=== PATIENT | male | born 1980 | race Caucasian/White ===

== ENCOUNTER 2021-04-04 13:54 | Inpatient (IN) | payer OTHER ==
[2021-04-04] MEDS ORDERED: HYDROmorphone 0.5 MG/0.5 ML SYRINGE IVP STA (14:05)
--- NOTE | 2021-04-04 14:15 | ED ---
General Adult HPI - General Chief complaint: Abdominal Pain Stated complaint: Ruptured Appendix Time Seen by Provider: 04/04/21 13:56 Source: patient, EMS Mode of arrival: EMS Limitations: no limitations - History of Present Illness Initial comments: 40-year-old male without any significant past medical history presents to the emergency room for a chief complaint of ruptured appendicitis. Patient has had pain since Saturday. He describes this pain as a constant sharp pain in the right lower quadrant. He has also had some nausea and chills. He was seen at [facility] today and had a computed tomography scan performed and was diagnosed with acute appendicitis and transferred to this facility.Patient has no other complaints at this time including shortness of breath, chest pain, abdominal pain, nausea or vomiting, headache, or visual changes. - Related Data Home Medications Medication Instructions Recorded Confirmed No Known Home Medications 04/04/21 04/04/21 Allergies Allergy/AdvReac Type Severity Reaction Status Date / Time No Known Drug Allergies Allergy Unknown Verified 04/04/21 14:52 Review of Systems ROS Statement: Those systems with pertinent positive or pertinent negative responses have been documented in the HPI. ROS Other: All systems not noted in ROS Statement are negative. Past Medical History Past Medical History: No Reported History History of Any Multi-Drug Resistant Organisms: None Reported Past Surgical History: No Surgical Hx Reported Past Psychological History: No Psychological Hx Reported Smoking Status: Former smoker Past Alcohol Use History: Occasional Past Drug Use History: Marijuana General Exam Limitations: no limitations General appearance: alert, in no apparent distress Head exam: Present: atraumatic Eye exam: Present: normal appearance, PERRL, EOMI. Absent: scleral icterus, conjunctival injection ENT exam: Present: normal exam, mucous membranes moist Neck exam: Present: normal inspection, full ROM Respiratory exam: Present: normal lung sounds bilaterally. Absent: respiratory distress, wheezes Cardiovascular Exam: Present: regular rate, normal rhythm, normal heart sounds GI/Abdominal exam: Present: soft, tenderness, normal bowel sounds. Absent: distended Course Vital Signs 04/04/21 13:58 Temperature 98.0 F Pulse Rate 69 Respiratory 18 Rate Blood Pressure 113/74 O2 Sat by Pulse 97 Oximetry EKG Findings - EKG Comments: EKG Findings:: Normal sinus rhythm, ventricular rate 67, [place] interval 168, QTC 390 Medical Decision Making - Medical Decision Making Vitals are stable. Patient is well-appearing. White blood cell count was 13.9. lactic acid does not look like it was obtained which she will do here today. Hemoglobin 12.[address] report with contrast was obtained which showed irregular thick walled fluid collection to 5.7 cm in the right pericolic gutter in the mid abdomen which likely represents ruptured acute tip appendicitis with a moderate amount of adjacent inflammation patient also has mild right perinephric fat stranding however urinalysis did not appear to demonstrate infection. Patient did receive Unasyn as well as a liter bolus. Case discussed with Dr. Bone. Recommends Zosyn instead of Unasyn. I did order this. Blood cultures were not drawn prior to this as patient has already received intravenous antibiotic therapy prior to arrival. She states patient can have a full liquids. Disposition Clinical Impression: Acute appendicitis, Leukocytosis, Abdominal pain Disposition: ADMITTED IP TO THIS HOSP Condition: Serious Is patient prescribed a controlled substance at d/c from ED?: No Time of Disposition: 15:00
[2021-04-04] MEDS ORDERED: SODIUM CHLORIDE 0.9% 1,000 ML IV STA (14:16)
[2021-04-04] MEDS ORDERED: PIPERACILLIN-TAZOBACTAM 3.375 GM in SODIUM CHLORIDE 0.9% 100 ML IVPB STA (14:16)
[2021-04-04] MEDS ORDERED: NALOXONE 0.4 MG/ML 1 ML VIAL IV PRN (14:54)
[2021-04-04] MEDS: HYDROmorphone 0.5 MG/0.5 ML SYRINGE IVP PRN (17:29)
[2021-04-04] MEDS: ONDANSETRON 4 MG/2 ML VIAL IVP PRN (18:50)
[2021-04-04 21:55] LABS: Basophils % (A) 0 %; Eosinophils # (A) 0.6 k/uL (0-0.7); Eosinophils % (A) 4 %; HCT 34.8 % (39.0-53.0); HGB 11.6 gm/dL (13.0-17.5); Lymphocytes # (A) 0.9 k/uL (1.0-4.8); Lymphocytes % (A) 7 %; MCH 32.8 pg (25.0-35.0); MCHC 33.4 g/dL (31.0-37.0); MCV 98.4 fL (80.0-100.0); Monocytes # (A) 0.9 k/uL (0-1.0); Monocytes % (A) 6 %; Neutrophils # (A) 11.8 k/uL (1.3-7.7); Neutrophils % (A) 81 %; Platelet Count 256 k/uL (150-450); RBC 3.53 m/uL (4.30-5.90); RDW 12.3 % (11.5-15.5); WBC 14.4 k/uL (3.8-10.6)
[2021-04-04 22:03] LABS: ALT 11 U/L (4-49); AST 15 U/L (17-59); African American GFR (CKD) >90 (>60 ml/min/1.73 sqM); Albumin 3.1 g/dL (3.5-5.0); Albumin/Globulin Ratio 1.2; Alkaline Phosphatase 69 U/L (38-126); Anion Gap 7 mmol/L; Blood Urea Nitrogen 11 mg/dL (9-20); Calcium 8.7 mg/dL (8.4-10.2); Carbon Dioxide 23 mmol/L (22-30); Chloride 107 mmol/L (98-107); Globulin 2.6 g/dL; Glucose 114 mg/dL (74-99); Non-African American GFR(CKD) >90 (>60 ml/min/1.73 sqM); Potassium 3.8 mmol/L (3.5-5.1); Sodium 137 mmol/L (137-145); Total Bilirubin 0.5 mg/dL (0.2-1.3); Total Protein 5.7 g/dL (6.3-8.2)
--- NOTE | 2021-04-04 22:07 | XR ---
EXAMINATION TYPE: XR abdomen acute w cxr DATE OF EXAM: 04/04/2021 COMPARISON: NONE HISTORY: Abdominal pain TECHNIQUE: 4 views FINDINGS: Heart and mediastinum are normal. Lungs are clear of infiltrate. There is no pleural effusi on. There are no hilar masses. There is no sign of intestinal obstruction or pneumoperitoneum. Fecal pattern is normal. There is con trast in the urinary bladder. There is no evidence of a mass. There are no calcifications over the ki dneys. There is some contrast in the renal collecting systems. There is old left clavicle fracture. IMPRESSION: Nonacute abdomen. No active cardiopulmonary disease.
[2021-04-04] MEDS: ENOXAPARIN 30 MG/0.3 ML SYRINGE SQ SCH (22:18)
[2021-04-04] MEDS: KETOROLAC 30 MG/ML 1 ML VIAL IVP SCH (22:18)
[2021-04-05] MEDS: HYDROmorphone 0.5 MG/0.5 ML SYRINGE IVP PRN ×3 (00:54→17:34)
[2021-04-05] MEDS: ACETAMINOPHEN TAB 500 MG TAB PO SCH ×4 (00:54→17:34)
[2021-04-05] MEDS: PIPERACILLIN-TAZOBACTAM 3.375 GM in SODIUM CHLORIDE 0.9% 100 ML IVPB SCH ×3 (01:35→16:00)
[2021-04-05] MEDS: KETOROLAC 30 MG/ML 1 ML VIAL IVP SCH ×4 (01:37→20:16)
[2021-04-05 07:19] LABS: Glucose,Whole Blood 130 mg/dL (75-99)
[2021-04-05] MEDS: metroNIDAZOLE-NS PMX 500 MG in SALINE 1 100ML.BAG IVPB SCH ×3 (08:16→17:41)
[2021-04-05] MEDS: SODIUM CHLORIDE 0.9% 1,000 ML IV SCH ×2 (08:18→21:38)
--- NOTE | 2021-04-05 09:42 | P.GSHP ---
History of Present Illness H&P Date: 04/05/21 CHIEF COMPLAINT: Abdominal pain HISTORY OF PRESENT ILLNESS: This a 40-year-old male patient who presented to [facility] yesterday morning around 8 AM. He states that he had right lower quadrant abdominal pain that began on Saturday, and presently has gotten worse. He was at work where his boss had told him he did not look well and he should go to the emergency room. He was seen at [facility] yesterday and he underwent a CT of the abdomen and pelvis that showed irregular thick-walled fluid collection up to 5.7 cm in the right paracolic gutter of the mid abdomen which likely represents ruptured acute tip appendicitis with a moderate amount of adjacent inflammation. Mild right perinephric fat stranding which is likely secondary to the adjacent inflammation but some of this does extend along the right ureter. Please correlate with urinalysis and other associated symptoms. 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 States he is unsure if he had any fevers. Denies chills. Has had associated nausea and vomiting. States last time he vomited was 3 AM. Has been afebrile. Admitting labs WBC 14.4 hemoglobin 11.6 platelet count 256,000 sodium 137 potassium 3.8 glucose 114 total bilirubin 0.5 AST 50 ALT 11 alkaline phosphatase 69. An acute abdominal series x-rays showing nonacute abdomen. PAST MEDICAL HISTORY: No reported past medical history PAST SURGICAL HISTORY: No surgical history. MEDICATIONS: See list. ALLERGIES: See list. SOCIAL HISTORY: Marijuana. Former smoker. REVIEW OF SYSTEMS: CONSTITUTIONAL: Denies fever or chills. HEENT: Denies blurred vision, vision changes, or eye pain. Denies hemoptysis ENDOCRINE: Denies heat or cold intolerance. CARDIOVASCULAR: Denies chest pain or pressure. RESPIRATORY: No shortness of breath. GASTROINTESTINAL: Right lower quadrant pain. Nausea and vomiting. No vomiting since 3 AM NEURO: Denies history of seizures. PSYCH: No depression or suicidal ideation HEMATOLOGIC: Denies bleeding disorders. LYMPHATIC: The patient denies any lumps and bumps around the neck. GENITOURINARY: Denies any blood in urine or increased urinary frequency. MUSCULOSKELETAL: Denies myalgias. Denies joint swelling. Denies decreased range of motion beyond patients baseline. SKIN: Denies pruitis. Denies rash. PHYSICAL EXAM: VITAL SIGNS: Reviewed GENERAL: Well-developed in no acute distress. HEENT: No sclera icterus. Extraocular movements grossly intact. Moist buccal mucosa. Head is atraumatic, normocephalic. Hears conversational speech. No nasal drainage. NECK: Supple without lymphadenopathy. CHEST: Non-labored respirations and equal bilateral excursions. CARDIOVASCULAR: Palpable 2+ radial pulses. ABDOMEN: Soft. Nondistended. Thin. Right lower quadrant tenderness. MUSCULOSKELETAL: No clubbing or cyanosis. NEUROLOGIC: No focal or lateralizing signs. Cranial nerves II through XII grossly intact. PSYCH: Appropriate affect. Alert and oriented to person, place and time. SKIN: Well perfused. Good skin turgor. LABORATORY DATA: WBC 14.4 hemoglobin 11.6 platelet count 256,000 sodium 137 potassium 3.8 glucose 114 total bilirubin 0.5 AST 50 ALT 11 alkaline phosphatase 69 IMAGING: CT of the abdomen and pelvis that showed irregular thick-walled fluid collection up to 5.7 cm in the right paracolic gutter of the mid abdomen which likely represents ruptured acute tip appendicitis with a moderate amount of adjacent inflammation. Mild right perinephric fat stranding which is likely secondary to the adjacent inflammation but some of this does extend along the right ureter. Please correlate with urinalysis and other associated symptoms. 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 No active cardiopulmonary disease. ASSESSMENT: 1. Right Lower quadrant Abdominal pain 2. Ruptured appendix. Irregular thick-walled fluid collection up to 5.7 cm and right paracolic gutter likely representing ruptured acute tip appendicitis with moderate amount of adjacent of inflammation per CT of the abdomen and pelvis. 3. Leukocytosis 4. Nausea and vomiting PLAN: 1. Continue Zosyn 2. Toradol 15 mg every 6 hours 3. Lovenox for DVT prophylaxis 4. Full liquid diet 5. CBC, CMP 6. Scopolamine patch for nausea 7. Further recommendations forthcoming per general surgeon The impression and plan of care has been dictated as directed. Dr. Jean I performed a history and examination of this patient, discussed the same with the dictator. I agree with the dictator's note ,documented as a scribe. Any additional findings or plans will be noted. Past Medical History Past Medical History: No Reported History History of Any Multi-Drug Resistant Organisms: None Reported Past Surgical History: No Surgical Hx Reported Past Psychological History: No Psychological Hx Reported Smoking Status: Former smoker Past Alcohol Use History: Occasional Past Drug Use History: Marijuana Medications and Allergies Home Medications Medication Instructions Recorded Confirmed Type No Known Home Medications 04/04/21 04/04/21 History Allergies Allergy/AdvReac Type Severity Reaction Status Date / Time No Known Drug Allergies Allergy Unknown Verified 04/04/21 14:52 Surgical - Exam Vital Signs Temp Pulse Resp BP Pulse Ox 98.0 F 69 18 113/74 97 04/04/21 13:58 04/04/21 13:58 04/04/21 13:58 04/04/21 13:58 04/04/21 13:58 Results - Labs 04/04/21 21:14 04/05/21 06:13 Abnormal Lab Results - Last 24 Hours (Table) 04/04/21 04/04/21 04/04/21 Range/Units 14:40 21:14 21:14 WBC 14.4 H (3.8-10.6) k/uL RBC 3.53 L (4.30-5.90) m/uL Hgb 11.6 L (13.0-17.5) gm/dL Hct 34.8 L (39.0-53.0) % Neutrophils # 11.8 H (1.3-7.7) k/uL Lymphocytes # 0.9 L (1.0-4.8) k/uL Glucose 114 H (74-99) mg/dL POC Glucose (mg/dL) (75-99) mg/dL Plasma Lactic Acid Kurt <0.5 L (0.7-2.0) mmol/L AST 15 L (17-59) U/L Total Protein 5.7 L (6.3-8.2) g/dL Albumin 3.1 L (3.5-5.0) g/dL 04/05/21 Range/Units 07:17 WBC (3.8-10.6) k/uL RBC (4.30-5.90) m/uL Hgb (13.0-17.5) gm/dL Hct (39.0-53.0) % Neutrophils # (1.3-7.7) k/uL Lymphocytes # (1.0-4.8) k/uL Glucose (74-99) mg/dL POC Glucose (mg/dL) 130 H (75-99) mg/dL Plasma Lactic Acid Kurt (0.7-2.0) mmol/L AST (17-59) U/L Total Protein (6.3-8.2) g/dL Albumin (3.5-5.0) g/dL Diabetes panel 04/04/21 Range/Units 21:14 Sodium 137 (137-145) mmol/L Potassium 3.8 (3.5-5.1) mmol/L Chloride 107 (98-107) mmol/L Carbon Dioxide 23 (22-30) mmol/L BUN 11 (9-20) mg/dL Creatinine 0.75 (0.66-1.25) mg/dL Glucose 114 H (74-99) mg/dL Calcium 8.7 (8.4-10.2) mg/dL AST 15 L (17-59) U/L ALT 11 (4-49) U/L Alkaline Phosphatase 69 (38-126) U/L Total Protein 5.7 L (6.3-8.2) g/dL Albumin 3.1 L (3.5-5.0) g/dL Calcium panel 04/04/21 Range/Units 21:14 Calcium 8.7 (8.4-10.2) mg/dL Albumin 3.1 L (3.5-5.0) g/dL Pituitary panel 04/04/21 Range/Units 21:14 Sodium 137 (137-145) mmol/L Potassium 3.8 (3.5-5.1) mmol/L Chloride 107 (98-107) mmol/L Carbon Dioxide 23 (22-30) mmol/L BUN 11 (9-20) mg/dL Creatinine 0.75 (0.66-1.25) mg/dL Glucose 114 H (74-99) mg/dL Calcium 8.7 (8.4-10.2) mg/dL Adrenal panel 04/04/21 Range/Units 21:14 Sodium 137 (137-145) mmol/L Potassium 3.8 (3.5-5.1) mmol/L Chloride 107 (98-107) mmol/L Carbon Dioxide 23 (22-30) mmol/L BUN 11 (9-20) mg/dL Creatinine 0.75 (0.66-1.25) mg/dL Glucose 114 H (74-99) mg/dL Calcium 8.7 (8.4-10.2) mg/dL Total Bilirubin 0.5 (0.2-1.3) mg/dL AST 15 L (17-59) U/L ALT 11 (4-49) U/L Alkaline Phosphatase 69 (38-126) U/L Total Protein 5.7 L (6.3-8.2) g/dL Albumin 3.1 L (3.5-5.0) g/dL
[2021-04-05 11:41] LABS: Glucose,Whole Blood 95 mg/dL (75-99)
[2021-04-05 11:47] LABS: African American GFR (CKD) 128.6 (60.0-200.0); Albumin 3.2 g/dL (3.8-4.9); Albumin/Globulin Ratio 1.6 (1.60-3.17); Anion Gap 10.8 mmol/L (10.00-18.00); BUN/Creat Ratio 12.13 Ratio (12.00-20.00); Blood Urea Nitrogen 9.7 mg/dL (9.0-27.0); Calcium 8.8 mg/dL (8.7-10.3); Carbon Dioxide 23.2 mmol/L (20.0-27.5); Potassium 4.3 mmol/L (3.5-5.5); Total Bilirubin 0.4 mg/dL (0.30-1.20); Total Protein 5.2 g/dL (6.2-8.2)
[2021-04-05 13:20] LABS: Basophils # (A) 0.04 X 10*3/uL (0.00-0.10); Basophils % (A) 0.3 %; Eosinophils # (A) 0.54 X 10*3/uL (0.04-0.35); Eosinophils % (A) 4.5 %; HCT 32.9 % (39.6-50.0); HGB 10.6 g/dL (13.0-17.0); Lymphocytes # (A) 2.12 X 10*3/uL (0.90-5.00); Lymphocytes % (A) 17.7 %; MCH 31.2 pg (27.0-32.0); MCHC 32.2 g/dL (32.0-37.0); MCV 96.8 fL (80.0-97.0); Mean Platelet Volume 10.4 fL (9.5-12.2); Monocytes # (A) 0.96 X 10*3/uL (0.20-1.00); Neutrophils # (A) 8.31 X 10*3/uL (1.80-7.70); Neutrophils % (A) 69.3 %; Platelet Count 255 X 10*3/uL (140-440); RDW 13.1 % (11.5-14.5); WBC 11.99 X 10*3/uL (4.50-10.00)
[2021-04-05] MEDS: SCOPOLAMINE 1.5MG/72HR PATCH TRANSDERM SCH (15:44)
[2021-04-05 16:42] LABS: Glucose,Whole Blood 103 mg/dL (75-99)
[2021-04-05] MEDS: ENOXAPARIN 30 MG/0.3 ML SYRINGE SQ SCH (20:16)
[2021-04-06] MEDS: metroNIDAZOLE-NS PMX 500 MG in SALINE 1 100ML.BAG IVPB SCH ×4 (00:29→16:20)
[2021-04-06] MEDS: ACETAMINOPHEN TAB 500 MG TAB PO SCH ×4 (00:29→16:19)
[2021-04-06] MEDS: PIPERACILLIN-TAZOBACTAM 3.375 GM in SODIUM CHLORIDE 0.9% 100 ML IVPB SCH ×3 (00:29→15:00)
[2021-04-06] MEDS: HYDROmorphone 0.5 MG/0.5 ML SYRINGE IVP PRN (00:32)
[2021-04-06] MEDS: KETOROLAC 30 MG/ML 1 ML VIAL IVP SCH ×4 (03:57→20:54)
[2021-04-06] MEDS: ONDANSETRON 4 MG/2 ML VIAL IVP PRN ×2 (04:26→13:06)
[2021-04-06 08:19] LABS: Basophils # (A) 0.1 k/uL (0-0.2); Basophils % (A) 1 %; Eosinophils # (A) 0.3 k/uL (0-0.7); Eosinophils % (A) 3 %; HGB 11.4 gm/dL (13.0-17.5); Lymphocytes # (A) 1.1 k/uL (1.0-4.8); Lymphocytes % (A) 10 %; MCHC 33.4 g/dL (31.0-37.0); MCV 98.6 fL (80.0-100.0); Mean Platelet Volume 7.8; Monocytes # (A) 0.6 k/uL (0-1.0); Monocytes % (A) 5 %; Neutrophils # (A) 8.6 k/uL (1.3-7.7); Neutrophils % (A) 79 %; Platelet Count 269 k/uL (150-450); RBC 3.45 m/uL (4.30-5.90); RDW 12.2 % (11.5-15.5); WBC 10.8 k/uL (3.8-10.6)
--- NOTE | 2021-04-06 10:36 | P.PN ---
<Lexy Serra - Last Filed: 04/06/21 10:33> Subjective Progress Note Date: 04/06/21 CHIEF COMPLAINT: Abdominal pain HISTORY OF PRESENT ILLNESS: This a 40-year-old male patient who presented to [facility] yesterday morning around 8 AM. He states that he had right lower quadrant abdominal pain that began on Saturday, and presently has gotten worse. He was at work where his boss had told him he did not look well and he should go to the emergency room. He was seen at [facility] yesterday and he underwent a CT of the abdomen and pelvis that showed irregular thick-walled fluid collection up to 5.7 cm in the right paracolic gutter of the mid abdomen which likely represents ruptured acute tip appendicitis with a moderate amount of adjacent inflammation. Mild right perinephric fat stranding which is likely secondary to the adjacent inflammation but some of this does extend along the right ureter. Please correlate with urinalysis and other associated symptoms. 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 Patient is seen and examined today. He states he still has severe abdominal pain and rates it as 7 out of 10 mostly on the right side of abdomen and right lower abdomen. He states his last bowel movement was last Saturday. He states he had more nausea and vomiting through the night. He denies any hematemesis. He has been afebrile. WBC is trending down today's labs show WBC 10.8 hemoglobin 11.4 PHYSICAL EXAM: VITAL SIGNS: Reviewed. GENERAL: Well-developed, appears in no acute distress. HEENT: No sclera icterus. Extraocular movements grossly intact. Moist buccal mucosa. Head is atraumatic, normocephalic. ABDOMEN: Soft. Nondistended. Right mid and lower quadrant tenderness with guarding. NEUROLOGIC: Alert and oriented. Cranial nerves II through XII grossly intact. ASSESSMENT: 1. Ruptured appendix. Irregular thick-walled fluid collection up to 5.7 cm and right paracolic gutter likely representing ruptured acute tip appendicitis with moderate amount of adjacent of inflammation per CT of the abdomen and pelvis. 2. Abdominal pain 3. Leukocytosis 4. Nausea and vomiting PLAN: 1. Consult to infectious disease 2. Continue IV Zosyn and Flagyl 3. Continue pain control 4. Antiemetics as needed 5. Repeat CBC with differential in the morning 6. Continue Lovenox for DVT prophylaxis 7. Change diet to clear liquid diet 8. Social work consulted regarding assessment for financial needs The impression and plan of care has been dictated as directed. Dr. Lane I performed a history and examination of this patient, discussed the same with the dictator. I agree with the dictator's note ,documented as a scribe. Any additional findings or plans will be noted. Objective - Vital Signs Vital signs: Vital Signs Temp 97.7 F 04/06/21 08:00 Pulse 58 L 04/06/21 08:00 Resp 16 04/06/21 08:00 BP 104/64 04/06/21 08:00 Pulse Ox 98 04/06/21 08:00 Intake & Output 04/05/21 04/06/21 04/06/21 18:59 06:59 18:59 Intake Total 118 740 Balance 118 740 Intake: Intake, IV Titration 200 Amount Piperacillin-Tazobactam 3 100 .375 gm In Sodium Chloride 0.9% 100 ml @ 25 mls/hr IVPB Q8HR [facility] Rx# :[id number] metroNIDAZOLE-NS PMX 500 100 mg In Saline 1 100ml.bag @ 100 mls/hr IVPB Q6HR [facility] Rx#:[id number] Oral 118 540 Other: Voiding Method Toilet # Voids 1 3 - Labs CBC & Chem 7: 04/06/21 07:48 04/05/21 06:13 Labs: Abnormal Lab Results - Last 24 Hours (Table) 04/05/21 04/05/21 04/05/21 Range/Units 06:13 06:13 16:40 WBC 11.99 H (4.50-10.00) X 10*3/uL RBC 3.40 L (4.40-5.60) X 10*6/uL Hgb 10.6 L (13.0-17.0) g/dL Hct 32.9 L (39.6-50.0) % Neutrophils # 8.31 H (1.80-7.70) X 10*3/uL Eosinophils # 0.54 H (0.04-0.35) X 10*3/uL POC Glucose (mg/dL) 103 H (75-99) mg/dL AST 8 L (14-35) U/L ALT 9 L (10-49) U/L Total Protein 5.2 L (6.2-8.2) g/dL Albumin 3.2 L (3.8-4.9) g/dL 04/06/21 Range/Units 07:48 WBC 10.8 H (4.50-10.00) X 10*3/uL RBC 3.45 L (4.40-5.60) X 10*6/uL Hgb 11.4 L (13.0-17.0) g/dL Hct 34.0 L (39.6-50.0) % Neutrophils # 8.6 H (1.80-7.70) X 10*3/uL Eosinophils # (0.04-0.35) X 10*3/uL POC Glucose (mg/dL) (75-99) mg/dL AST (14-35) U/L ALT (10-49) U/L Total Protein (6.2-8.2) g/dL Albumin (3.8-4.9) g/dL <Ed Lane - Last Filed: 04/06/21 17:44> Subjective As above. Patient with CAT scan evidence of perforated appendicitis with small abscess. He is discussed with interventional radiology. Fluid collection fairly small. We'll plan repeat CAT scan tomorrow. Certainly if size of fluid collection increases further will request percutaneous drainage. Continue antibiotics. Continue pain control. Objective - Vital Signs Vital signs: Vital Signs Temp 97.8 F 04/06/21 13:54 Pulse 55 L 04/06/21 13:54 Resp 16 04/06/21 13:54 BP 112/64 04/06/21 13:54 Pulse Ox 99 04/06/21 13:54 Intake & Output 04/05/21 04/06/21 04/06/21 18:59 06:59 18:59 Intake Total 118 740 960 Balance 118 740 960 Intake: Intake, IV Titration 200 Amount Piperacillin-Tazobactam 3 100 .375 gm In Sodium Chloride 0.9% 100 ml @ 25 mls/hr IVPB Q8HR [facility] Rx# :[id number] metroNIDAZOLE-NS PMX 500 100 mg In Saline 1 100ml.bag @ 100 mls/hr IVPB Q6HR [facility] Rx#:[id number] Oral 118 540 960 Other: Voiding Method Toilet # Voids 1 3 2 - Labs CBC & Chem 7: 04/06/21 07:48 04/05/21 06:13 Labs: Abnormal Lab Results - Last 24 Hours (Table) 04/06/21 Range/Units 07:48 WBC 10.8 H (3.8-10.6) k/uL RBC 3.45 L (4.30-5.90) m/uL Hgb 11.4 L (13.0-17.5) gm/dL Hct 34.0 L (39.0-53.0) % Neutrophils # 8.6 H (1.3-7.7) k/uL
[2021-04-06] MEDS: SODIUM CHLORIDE 0.9% 1,000 ML IV SCH (15:15)
[2021-04-06] MEDS ORDERED: IOPAMIDOL CONTRAST (ORAL USE) VIAL PO PRN (18:04)
[2021-04-06] MEDS: ENOXAPARIN 30 MG/0.3 ML SYRINGE SQ SCH (20:53)
[2021-04-06] MEDS: TEMAZEPAM 15 MG CAP PO PRN (20:54)
[2021-04-07] MEDS: ACETAMINOPHEN TAB 500 MG TAB PO SCH ×4 (00:30→16:55)
[2021-04-07] MEDS: metroNIDAZOLE-NS PMX 500 MG in SALINE 1 100ML.BAG IVPB SCH ×4 (00:59→16:56)
[2021-04-07] MEDS: PIPERACILLIN-TAZOBACTAM 3.375 GM in SODIUM CHLORIDE 0.9% 100 ML IVPB SCH ×3 (00:59→16:56)
[2021-04-07] MEDS: KETOROLAC 30 MG/ML 1 ML VIAL IVP SCH ×4 (04:53→21:04)
[2021-04-07] MEDS: SODIUM CHLORIDE 0.9% 1,000 ML IV SCH ×2 (04:56→13:39)
--- NOTE | 2021-04-07 08:42 | P.CONS ---
History of Present Illness - Reason for Consult Consult date: 04/06/21 intra abdominal abscess Requesting physician: Ed Lane - Chief Complaint abd pain x 5 days - History of Present Illness History of present illness : Patient is a 40-year-old male who apparently presented to the outside facility for evaluation of abdominal pain that started around 8 in the morning the day of presentation to the hospital however the patient did mention he is having pain off and on for last few days it is mostly in the right lower abdominal area that apparently present started on Saturday 4 days before presentation to the hospital that has progressed to get worse patient describing the pain to be sharp intensity is almost 10 out of 10 when severe some relief with pain medication and some nausea but no vomiting denies having any diarrhea or constipation patient did have a CT of abdominal pelvis done at [facility] which did shows irregular thick-walled fluid collection up to 5.7 cm in the right paracolic gutter patient subsequently was sent to [facility] ER for further management on presentation to the hospital patient is afebrile did have white count of 11.99 with a left shift creatinine is normal patient did have acute abdominal series nonacute abdominal no active cardiopulmonary disease patient be started on Zosyn and Flagyl infectious disease was consulted for further management of antibiotic therapy Review of system: CONSTITUTIONAL: Positive for weakness denies high-grade fever. EYES: No complaint. ENT: No complaint. RESPIRATORY: No complaint. CARDIOVASCULAR: No complaint. GENITOURINARY: No complaint. GASTROINTESTINAL: As per history of present illness. MUSCULOSKELETAL: No complaint. INTEGUMENTARY: No complaint. PSYCHOLOGIC: No complaint. ENDOCRINE: No complaint. NEUROLOGIC: No complaint. Past medical history : Reviewed, documented below Past surgical history : Reviewed, documented below Social history: Reviewed, documented below Medications: Reviewed, as documented below EXAMINATION: Vital sigans= Reviewed and documented below GENERAL DESCRIPTION: Middle-aged male lying in bed, no distress. No tachypnea or accessory muscle of respiration use. HEENT: Shows Pallor , no scleral icterus. Oral mucous membrane is dry. NECK: Trachea central, no thyromegaly. LUNGS: Unlabored breathing. Clear to auscultation anteriorly. No wheeze or crackle. HEART: S1, S2, regular rate and rhythm. ABDOMEN: Soft right lower quadrant tenderness , guarding or rigidity EXTREMITIES: No edema of feet. SKIN: No rash, no masses palpable. NEUROLOGICAL: The patient is awake, alert, oriented x3, mood and affect normal. LABS AND RADIOLOGY: Reviewed results see below Assessment : Patient presented to hospital with abdominal pain in this patient with evidence of lower quadrant abscess from ruptured appendicitis in this patient symptom has going on for about 6 days currently is afebrile white count is mildly elevated will need to call for the enteric gram-negative with a likely pathogen Plan: 1-we will consult IR for CT-guided drainage of this abscess fluid should be sent for Gram stain and culture both aerobic and anaerobic 2-Zosyn 3.375 g every 8 hours should provide adequate antibiotic coverage 3-IV fluid and pain management We will follow on clinical condition and cultures to further adjust medication if needed Thank you for this consultation we will follow the patient along with you Past Medical History Past Medical History: No Reported History History of Any Multi-Drug Resistant Organisms: None Reported Past Surgical History: No Surgical Hx Reported Past Psychological History: No Psychological Hx Reported Smoking Status: Former smoker Past Alcohol Use History: Occasional Past Drug Use History: Marijuana Medications and Allergies Home Medications Medication Instructions Recorded Confirmed Type No Known Home Medications 04/04/21 04/04/21 History Allergies Allergy/AdvReac Type Severity Reaction Status Date / Time No Known Drug Allergies Allergy Unknown Verified 04/04/21 14:52 Physical Exam Vitals: Vital Signs Temp Pulse Resp BP Pulse Ox 04/07/21 00:29 98.0 F 54 L 15 103/62 99 04/06/21 20:00 98.5 F 50 L 18 110/65 100 04/06/21 13:54 97.8 F 55 L 16 112/64 99 Intake and Output 04/06/21 04/07/21 04/07/21 22:59 06:59 14:59 Intake Total 956 Balance 956 Intake: Oral 956 Other: # Voids 2 Results CBC & Chem 7: 04/06/21 07:48 04/05/21 06:13
[2021-04-07] MEDS: ONDANSETRON 4 MG/2 ML VIAL IVP PRN ×2 (09:20→16:59)
[2021-04-07 09:25] LABS: Basophils # (A) 0.12 X 10*3/uL (0.00-0.10); Basophils % (A) 0.9 %; Eosinophils % (A) 2.3 %; HGB 10.9 g/dL (13.0-17.0); Lymphocytes % (A) 11.4 %; MCH 31.6 pg (27.0-32.0); MCV 95.7 fL (80.0-97.0); Mean Platelet Volume 10.5 fL (9.5-12.2); Monocytes # (A) 0.78 X 10*3/uL (0.20-1.00); Monocytes % (A) 5.9 %; Neutrophils # (A) 10.39 X 10*3/uL (1.80-7.70); Neutrophils % (A) 79.2 %; Platelet Count 312 X 10*3/uL (140-440); RBC 3.45 X 10*6/uL (4.40-5.60); WBC 13.13 X 10*3/uL (4.50-10.00)
--- NOTE | 2021-04-07 09:26 | P.PN ---
Subjective Progress Note Date: 04/07/21 Principal diagnosis: Appendiceal abscess Patient says today his pain is about the same as it was yesterday. He is afebrile. Repeat CAT scan pending this morning. Labs pending. Objective - Vital Signs Vital signs: Vital Signs Temp 97.9 F 04/07/21 07:08 Pulse 53 L 04/07/21 07:08 Resp 12 04/07/21 07:08 BP 117/64 04/07/21 07:08 Pulse Ox 99 04/07/21 07:08 Intake & Output 04/06/21 04/07/21 04/07/21 18:59 06:59 18:59 Intake Total 1556 Balance 1556 Intake: Oral 1556 Other: # Voids 2 - Exam Abdomen: Soft, mild right lower quadrant tenderness, no rebound or guarding - Labs CBC & Chem 7: 04/06/21 07:48 04/05/21 06:13 Assessment and Plan (1) Appendiceal abscess Narrative/Plan: Patient doing about the same today. Continue IV antibiotics. Continue clear liquid diet. Await repeat CAT scan today. Current Visit: Yes Status: Acute Code(s): K35.33 - ACUTE APPENDICITIS WITH PERF AND LOC PERITONITIS, WITH ABSCS SNOMED Code(s): 97508134
[2021-04-07 10:26] LABS: African American GFR (CKD) 107.9 (60.0-200.0); Albumin/Globulin Ratio 1.36 (1.60-3.17); BUN/Creat Ratio 13.3 Ratio (12.00-20.00); Blood Urea Nitrogen 13.3 mg/dL (9.0-27.0); Calcium 8.7 mg/dL (8.7-10.3); Globulin 2.2 g/dL (1.6-3.3); Non-African American GFR(CKD) 93.1 (60.0-200.0); Total Bilirubin 0.3 mg/dL (0.30-1.20); Total Protein 5.2 g/dL (6.2-8.2)
--- NOTE | 2021-04-07 10:55 | CT ---
EXAMINATION TYPE: CT abdomen pelvis w con DATE OF EXAM: 04/07/2021 COMPARISON: Outside CT 04/04/2021 HISTORY: 40-year-old male Right lower quadrant abdominal pain. Follow-up appendiceal abscess. TECHNIQUE: Contiguous axial scanning of the abdomen and pelvis following administration of 100 ml Iso terra 300 IV contrast. Delayed images through the kidneys and coronal/sagittal reconstructions perform ed. CT DLP: 809 mGycm Automated exposure control for dose reduction was used. FINDINGS: Heart normal size without pericardial effusion. New trace right pleural effusion. Somewhat heterogeneous arterial enhancement of the liver. This may be due to phase of imaging there i s some underlying nonspecific hepatocellular disease such as fatty infiltration. Clinically correlate . No focal liver lesion seen. There is gallbladder wall thickening up to 6 mm, likely reactive. No abnormal hydropic change. Some l ayering sludge is present. No surrounding inflammatory fat stranding. Adrenal glands, right kidney, spleen, pancreas within normal limits. Small 7 mm cortical hypodensity medial upper pole left kidney too small for accurate CT characterizat ion, unchanged from recent prior, likely small cortical cyst. There is a 2.1 cm left periaortic cystic lesion, unchanged from prior. No dilated small bowel or free air. Liquid stool within the cecum and ascending colon. No significant stool burden. Some reactive right lower quadrant mesenteric lymph nodes measuring up to 7 mm are similar. The cecum is low-lying within the right side of the pelvis. The appendix extends superiorly and there is redemonstrated combination of inflammatory soft tissue thickening, edema, and fluid collection al magaly the right midabdomen. Overall phlegmon measures 5.8 x 4.8 x 3.3 cm (versus 6.4 x 5.6 x 3.2 cm, pr eviously). The centrally located area of focal fluid measures 3.7 x 2.4 cm (versus 3.0 x 1.7 cm, prev iously). Hyperemia involving the colonic wall just adjacent likely reactive segment of relative narrowing near the ileocecal valve likely transient, axial image 78 and coronal image 39. Bladder is nondistended. A set of pelvic fluid with. Moderate pelvic free fluid slightly increased an d likely reactive. Bones: Bilateral L5 pars defects with grade 1 anterolisthesis at L5-S1. IMPRESSION: 1. REDEMONSTRATED SEQUELA OF TIP APPENDICITIS. THERE IS EVOLUTION OF THE INFLAMMATORY COLLECTION IN T HE RIGHT MID ABDOMEN WITH DECREASING SIZE OF PHLEGMON (5.8 CM NOW VERSUS 6.4 CM, PREVIOUSLY) AND ORGA NIZING ABSCESS SLIGHTLY LARGER NOW (3.7 CM VERSUS 2.4 CM, PREVIOUSLY). 2. MODERATE PELVIC FREE FLUID SLIGHTLY INCREASED, LIKELY REACTIVE. TRACE RIGHT PLEURAL EFFUSION IS NE W, LIKELY REACTIVE WELL. NO FREE AIR SEEN. 3. SOME COLONIC WALL HYPEREMIA AND SOME RELATIVE NARROWING OF THE COLON NEAR THE ILEOCECAL VALVE AGATA ON (CORONAL IMAGE 39) PROBABLY TRANSIENT. ATTENTION ON FOLLOW-UP. 4. SOMEWHAT HETEROGENEOUS ARTERIAL ENHANCEMENT OF THE LIVER MAY BE DUE TO PHASE OF IMAGING. CORRELATE WITH LFT's TO EXCLUDE UNDERLYING NONSPECIFIC HEPATOCELLULAR DISEASE. 5. BILATERAL L5 PARS DEFECTS WITH GRADE 1 ANTEROLISTHESIS L5-S1.
[2021-04-07] MEDS: HYDROmorphone 0.5 MG/0.5 ML SYRINGE IVP PRN (13:48)
[2021-04-07] MEDS ORDERED: HYDROmorphone 0.5 MG/0.5 ML SYRINGE IVP PRN (14:24)
--- NOTE | 2021-04-07 14:25 | P.PCN ---
Date of Procedure: 04/07/21 Preoperative Diagnosis: abscess Procedure(s) Performed: ct guide drain Anesthesia: local Estimated Blood Loss (ml): 3 Pathology: other (specimen for microbiology) Disposition: no change Operative Findings: unable to deploy catheter in abscess, tissue at tip of catheter and abscess fluid sent for micro analysis
[2021-04-07] MEDS: HYDROmorphone 1 MG/ML 1 ML SYRINGE IVP PRN (19:20)
--- NOTE | 2021-04-07 19:41 | PN ---
PROGRESS NOTE DATE OF SERVICE: 04/07/2021 REASON FOR FOLLOWUP: Intraabdominal abscess from perforated diverticulitis. INTERVAL HISTORY: The patient is afebrile. The patient is breathing comfortably. Still complaining of abdominal pain, no worsening though. Denies any chest pain, shortness of breath or cough. No vomiting or diarrhea. PHYSICAL EXAMINATION: Blood pressure 116/64 with a pulse of 53, temperature 97.9. He is 99% on room air. General description is a middle-aged male lying in bed in no distress. Respiratory system: Unlabored breathing, clear to auscultation anteriorly. Heart S1, S2. Regular rate and rhythm. Abdomen soft. Extremities: No edema of the feet. LABS: White count slightly up to 13.13 with a BUN of 13.3, creatinine 1.0. DIAGNOSTIC IMPRESSION AND PLAN: Patient with intraabdominal abscess and perforated appendicitis with attempted CT- guided drainage. Drain could not be placed. The patient is covered with Zosyn. Cultures will be followed. Antibiotic adjusted further. Continue supportive care. MMODL / IJN: [id number] /
[2021-04-07] MEDS: TEMAZEPAM 15 MG CAP PO PRN (21:04)
[2021-04-07] MEDS: ENOXAPARIN 30 MG/0.3 ML SYRINGE SQ SCH (21:05)
[2021-04-08] MEDS: ACETAMINOPHEN TAB 500 MG TAB PO SCH ×6 (00:01→23:10)
[2021-04-08] MEDS: metroNIDAZOLE-NS PMX 500 MG in SALINE 1 100ML.BAG IVPB SCH ×5 (00:01→23:11)
[2021-04-08] MEDS: PIPERACILLIN-TAZOBACTAM 3.375 GM in SODIUM CHLORIDE 0.9% 100 ML IVPB SCH ×3 (00:02→14:51)
[2021-04-08] MEDS: SODIUM CHLORIDE 0.9% 1,000 ML IV SCH ×2 (03:36→14:52)
[2021-04-08] MEDS: KETOROLAC 30 MG/ML 1 ML VIAL IVP SCH ×4 (03:49→21:11)
[2021-04-08 08:48] LABS: Basophils # (A) 0.03 X 10*3/uL (0.00-0.10); Basophils % (A) 0.2 %; Eosinophils # (A) 0.21 X 10*3/uL (0.04-0.35); Eosinophils % (A) 1.1 %; HCT 31.6 % (39.6-50.0); HGB 10.8 g/dL (13.0-17.0); Lymphocytes # (A) 1.37 X 10*3/uL (0.90-5.00); Lymphocytes % (A) 7.1 %; MCH 32.2 pg (27.0-32.0); MCHC 34.2 g/dL (32.0-37.0); MCV 94.3 fL (80.0-97.0); Mean Platelet Volume 10.3 fL (9.5-12.2); Monocytes # (A) 0.77 X 10*3/uL (0.20-1.00); Neutrophils # (A) 16.72 X 10*3/uL (1.80-7.70); Neutrophils % (A) 87.1 %; Platelet Count 340 X 10*3/uL (140-440); RBC 3.35 X 10*6/uL (4.40-5.60); RDW 13.1 % (11.5-14.5); WBC 19.19 X 10*3/uL (4.50-10.00)
--- NOTE | 2021-04-08 09:29 | P.PN ---
Subjective Progress Note Date: 04/08/21 Principal diagnosis: Appendiceal abscess Patient went for attempted percutaneous drainage yesterday. They were able to obtain a small amount of fluid for culture. No drain was able to be placed as the fluid collection was thicker liquid or semisolid material. His white blood cell count is elevated today at 19,000. He is afebrile. Vital signs are stable. Patient is frustrated. Says his pain is about the same as when he came in. Objective - Vital Signs Vital signs: Vital Signs Temp 98.4 F 04/08/21 08:25 Pulse 95 04/08/21 08:25 Resp 16 04/08/21 08:25 BP 112/66 04/08/21 08:25 Pulse Ox 98 04/08/21 08:25 Intake & Output 04/07/21 04/08/21 04/08/21 18:59 06:59 18:59 Intake Total 1110 Balance 1110 Intake: Intake, IV Titration 750 Amount Sodium Chloride 0.9% 1, 550 000 ml @ 75 mls/hr IV . [id number] [facility] Rx#:[id number] metroNIDAZOLE-NS PMX 500 200 mg In Saline 1 100ml.bag @ 100 mls/hr IVPB Q6HR [facility] Rx#:[id number] Oral 360 Other: # Voids 5 3 - Exam Abdomen: Soft, moderate right-sided tenderness, no rebound or guarding - Labs CBC & Chem 7: 04/08/21 05:40 04/07/21 07:09 Labs: Abnormal Lab Results - Last 24 Hours (Table) 04/07/21 04/07/21 04/08/21 Range/Units 07:09 07:09 05:40 WBC 13.13 H 19.19 H (4.50-10.00) X 10*3/uL RBC 3.45 L 3.35 L (4.40-5.60) X 10*6/uL Hgb 10.9 L 10.8 L (13.0-17.0) g/dL Hct 33.0 L 31.6 L (39.6-50.0) % MCH 32.2 H (27.0-32.0) pg Immature Gran # 0.09 H (0.00-0.04) X 10*3/uL Neutrophils # 10.39 H 16.72 H (1.80-7.70) X 10*3/uL Basophils # 0.12 H (0.00-0.10) X 10*3/uL Total Protein 5.2 L (6.2-8.2) g/dL Albumin 3.0 L (3.8-4.9) g/dL Albumin/Globulin Ratio 1.36 L (1.60-3.17) g/dL Microbiology - Last 24 Hours (Table) 04/07/21 14:30 Anaerobic Culture - Preliminary Aspirate Assessment and Plan (1) Appendiceal abscess Narrative/Plan: Patient and I discussed clinical scenario in detail. Apparently he was threatening to leave AMA as hemostasis his family and his Calcium today. Patient states his pain is not improved from admission. With the inability to place draining yesterday on the elevated white blood cell count we did discuss the options of surgical intervention at this point. I notified the patient this would likely represent a bowel resection. The associated risks of bleeding, infection, abscess, leak, possible need for ostomy, ureteral or duodenal injury, hernia, possible need for further procedures were reviewed. He will consider and notify me with his decision. Continue antibiotics for now. Current Visit: Yes Status: Acute Code(s): K35.33 - ACUTE APPENDICITIS WITH PERF AND LOC PERITONITIS, WITH ABSCS SNOMED Code(s): 96509143
[2021-04-08] MEDS: HYDROmorphone 1 MG/ML 1 ML SYRINGE IVP PRN ×3 (09:34→23:10)
[2021-04-08] MEDS: ONDANSETRON 4 MG/2 ML VIAL IVP PRN ×2 (09:44→22:01)
[2021-04-08] MEDS: SCOPOLAMINE 1.5MG/72HR PATCH TRANSDERM SCH (14:52)
[2021-04-08] MEDS ORDERED: PROPOFOL 10 MG/ML 20 ML VIAL IV ONE (17:59)
[2021-04-08] MEDS ORDERED: fentaNYL (PF) 50 MCG/ML 2 ML AMP ONE (17:59)
[2021-04-08] MEDS ORDERED: LIDOCAINE 1% INJ 10MG/ML (20 ML MDV) ONE (17:59)
[2021-04-08] MEDS ORDERED: MIDAZOLAM 2 MG/2 ML VIAL ONE (17:59)
[2021-04-08] MEDS ORDERED: GLYCOPYRROLATE 0.2 MG/ML 2 ML VIAL ONE (17:59)
[2021-04-08] MEDS ORDERED: HYDROmorphone (PF) 1 MG/ML ONE (17:59)
[2021-04-08] MEDS ORDERED: SUCCINYLCHOLINE CHLORIDE 100 MG/5 ML SYR IV ONE (17:59)
[2021-04-08] MEDS ORDERED: ROCURONIUM 10 MG/ML (5 ML VIAL) IV ONE (17:59)
[2021-04-08] MEDS ORDERED: NEOSTIGMINE 1 MG/ML 10 ML VIAL ONE (17:59)
[2021-04-08] MEDS ORDERED: SODIUM CHLORIDE 0.9% 1,000 ML IV ONE (18:06)
[2021-04-08] MEDS ORDERED: LACTATED RINGERS 1,000 ML IV ONE (19:22)
--- NOTE | 2021-04-08 20:09 | P.OP ---
Date of Procedure: 04/08/21 Procedure(s) Performed: PREOPERATIVE DIAGNOSIS: Appendiceal abscess POSTOPERATIVE DIAGNOSIS: Same PROCEDURE: Exploratory laparotomy with right colectomy and drainage periappendiceal abscess SURGEON: Ariana EBL: 50ML ANESTHESIA: General COMPLICATIONS: None OPERATIVE PROCEDURE: Placement placed in the operating table in the supine position. The patient was placed under general anesthesia. Abdomen was then prepped and draped sterilely. Midline incision made using the scalpel. Dissection through the subcutaneous tissues and fascia took place using electrocautery. Entrance into the peritoneal cavity occurred. Bookwalter retractor was utilized. The terminal ileum and cecum appeared normal. The philippe ent did have a large volume of air throughout the transverse colon right colon and distal small bowel. A small colotomy was made in the cecum and the air was evacuated. This was closed using a 3-0 silk pursestring. We had better visualization at this point. Mobilization of the terminal ileum took place. We'll bolus sedation of the cecum then took place using blunt dissection. The patient had a large inflammatory mass involving the mid aspect of the ascending colon extending towards the hepatic flexure. We were able to visualize the appendix entering into this abscess cavity consistent with appendiceal abscess. Once we had the colon mobilized medially I divided the transverse colon using a linear 75 stapler. The duodenum was visualized and protected. The course of the right ureter likewise was protected. The terminal ileum was then divided in a similar fashion using a linear 75 stapler. Mesentery of the transverse colon and ascending colon cecum and terminal ileum was then divided using a combination of 0 silk ties and the LigaSure device. Specimen was passed off at that point. The area was irrigated. No bleeding was seen. I did identify some induration at the apex of the hepatic flexure. I was concerned this may represent a portion of the tip of the appendix with an inflamed pericolonic fat. This was excised and sent with the initial specimen. No residual indurated tissue was seen at that time. The area was irrigated with saline and no bleeding or purulence was noted. We then proceeded with anastomosis. The antimesenteric portion of the staple line of both the ileum and transverse colon was excised using electrocautery. The linear 75 stapler was fired along the antimesenteric border creating a [id number] anastomosis antiperistaltic. The defect was then closed using a TX 60 device. The TX 60 stapler line was imbricated using interrupted 3-0 GI silk sutures. A 3-0 GI silk crotch stitch was also placed. Again irrigation took place with no evidence of bleeding. The mesentery was closed using a running locking 3-0 Vicryl suture. The midline fascia was then reapproximated using 2 separate double-stranded looped PDS sutures. The skin was loosely reapproximated with darin. 2 separate areas were left open for Aquacel silver rope wick placement. Sterile outer dressings were applied. At the end of this procedure the sponge needle and instrument counts were correct. DISPOSITION: Stable to recovery room
[2021-04-08] MEDS ORDERED: HYDROmorphone 0.5 MG/0.5 ML SYRINGE IVP ONE ×2 (20:15→20:25)
--- NOTE | 2021-04-08 20:15 | PN ---
PROGRESS NOTE DATE OF SERVICE: 04/08/2021 REASON FOR FOLLOWUP: Perforated appendicitis with abdominal abscess. INTERVAL HISTORY: The patient is afebrile. The patient is breathing comfortably. Patient denies having any chest pain or shortness of breath or cough. Still complaining of pain to the right lower abdominal area. PHYSICAL EXAMINATION: Blood pressure 127/74 with a pulse of 69, temperature 97.9. He is 96% on room air. General description is a middle-aged male lying in bed in no distress. Respiratory system: Unlabored breathing. Clear to auscultation anteriorly. Heart S1, S2. Regular rate and rhythm. Abdomen soft. Mildly tender. No guarding or rigidity. LABS: Hemoglobin is 10.1, white count up to .9. DIAGNOSTIC IMPRESSION AND PLAN: Patient with intraabdominal abscess and perforated appendicitis, status post attempted CT-guided drainage; could not be drained completely. Plan is for open surgery and drainage of the abscess. Culture should be obtained. Continue Zosyn. Antibiotic adjusted further based on the culture report. Continue supportive care. MMODL / IJN: [id number] /
[2021-04-08] MEDS: ENOXAPARIN 30 MG/0.3 ML SYRINGE SQ SCH (21:12)
[2021-04-08] MEDS: MORPHINE SULFATE 4 MG/ML SYRINGE IV PRN (21:55)
[2021-04-09] MEDS: HYDROcodone/APAP 5-325MG 1 EACH TAB PO PRN ×3 (00:25→16:17)
[2021-04-09] MEDS: PIPERACILLIN-TAZOBACTAM 3.375 GM in SODIUM CHLORIDE 0.9% 100 ML IVPB SCH ×3 (00:25→16:17)
[2021-04-09] MEDS: KETOROLAC 30 MG/ML 1 ML VIAL IVP SCH ×4 (00:26→17:02)
[2021-04-09] MEDS: MORPHINE SULFATE 4 MG/ML SYRINGE IV PRN (02:36)
[2021-04-09] MEDS: metroNIDAZOLE-NS PMX 500 MG in SALINE 1 100ML.BAG IVPB SCH ×3 (06:30→17:02)
[2021-04-09] MEDS: ACETAMINOPHEN TAB 500 MG TAB PO SCH ×3 (06:35→17:03)
[2021-04-09] MEDS: PANTOPRAZOLE 40 MG/10 ML VIAL IV SCH (09:16)
[2021-04-09] MEDS: HYDROmorphone 1 MG/ML 1 ML SYRINGE IVP PRN ×3 (09:16→20:52)
[2021-04-09] MEDS: SODIUM CHLORIDE 0.9% 1,000 ML IV SCH ×2 (09:20→17:03)
[2021-04-09 09:32] LABS: Basophils # (A) 0.04 X 10*3/uL (0.00-0.10); Basophils % (A) 0.2 %; Eosinophils # (A) 0.01 X 10*3/uL (0.04-0.35); Eosinophils % (A) 0 %; HGB 11.4 g/dL (13.0-17.0); Lymphocytes # (A) 1.11 X 10*3/uL (0.90-5.00); Lymphocytes % (A) 5.5 %; MCH 31.1 pg (27.0-32.0); MCHC 32.6 g/dL (32.0-37.0); MCV 95.4 fL (80.0-97.0); Mean Platelet Volume 10.4 fL (9.5-12.2); Monocytes % (A) 4.4 %; Neutrophils # (A) 18.19 X 10*3/uL (1.80-7.70); Neutrophils % (A) 89.5 %; Platelet Count 407 X 10*3/uL (140-440); RBC 3.67 X 10*6/uL (4.40-5.60); RDW 13.2 % (11.5-14.5); WBC 20.34 X 10*3/uL (4.50-10.00)
[2021-04-09 09:41] LABS: African American GFR (CKD) 135.9 (60.0-200.0); Anion Gap 13.7 mmol/L (10.00-18.00); BUN/Creat Ratio 12.43 Ratio (12.00-20.00); Blood Urea Nitrogen 8.7 mg/dL (9.0-27.0); Calcium 8.3 mg/dL (8.7-10.3); Carbon Dioxide 21.3 mmol/L (20.0-27.5); Non-African American GFR(CKD) 117.2 (60.0-200.0); Potassium 4.1 mmol/L (3.5-5.5)
--- NOTE | 2021-04-09 11:02 | P.PN ---
Subjective Progress Note Date: 04/09/21 Principal diagnosis: Appendiceal abscess Patient was complaining this morning about his Frank catheter. That was removed. Denies nausea or vomiting. Says his pain is improved overall from preop. White blood cell count remains elevated at 20,000. He is afebrile. No nausea or vomiting. EUNICE drain serosanguineous. Objective - Vital Signs Vital signs: Vital Signs Temp 98.8 F 04/09/21 06:22 Pulse 66 04/09/21 06:22 Resp 16 04/09/21 06:22 BP 132/87 04/09/21 06:22 Pulse Ox 97 04/09/21 06:22 Intake & Output 04/08/21 04/09/21 04/09/21 18:59 06:59 18:59 Intake Total 400 200 Output Total 1732 30 Balance 400 -1532 -30 Intake: IV 400 200 Output: Drainage 132 30 Right Lower Abdomen 132 30 Urine 1550 Estimated Blood Loss 50 Other: Voiding Method Indwelling Catheter # Voids 3 - Exam Abdomen: Soft, mild distention, dressing clean and dry, mild tenderness - Labs CBC & Chem 7: 04/09/21 04:07 04/09/21 04:07 Labs: Abnormal Lab Results - Last 24 Hours (Table) 04/09/21 04/09/21 Range/Units 04:07 04:07 WBC 20.34 H (4.50-10.00) X 10*3/uL RBC 3.67 L (4.40-5.60) X 10*6/uL Hgb 11.4 L (13.0-17.0) g/dL Hct 35.0 L (39.6-50.0) % Immature Gran # 0.09 H (0.00-0.04) X 10*3/uL Neutrophils # 18.19 H (1.80-7.70) X 10*3/uL Eosinophils # 0.01 L (0.04-0.35) X 10*3/uL BUN 8.7 L (9.0-27.0) mg/dL Calcium 8.3 L (8.7-10.3) mg/dL Microbiology - Last 24 Hours (Table) 04/08/21 19:20 Gram Stain - Preliminary Appendix Wound Culture - Preliminary 04/08/21 19:20 Gram Stain - Preliminary Abdomen Wound Culture - Preliminary 04/08/21 19:20 Anaerobic Culture - Preliminary Abdominal Fluid 04/08/21 19:20 Anaerobic Culture - Preliminary Appendix Assessment and Plan (1) Appendiceal abscess Narrative/Plan: Patient doing better at this time. Continue antibiotics. Begin clear liquid diet. Ambulate. Current Visit: Yes Status: Acute Code(s): K35.33 - ACUTE APPENDICITIS WITH PERF AND LOC PERITONITIS, WITH ABSCS SNOMED Code(s): 26675274
[2021-04-09] MEDS: ENOXAPARIN 30 MG/0.3 ML SYRINGE SQ SCH (20:44)
[2021-04-09] MEDS: FLUCONAZOLE IN NACL,ISO-OSM 200 MG in SALINE 1 100ML.BAG IVPB SCH (23:06)
--- NOTE | 2021-04-10 00:07 | PN ---
PROGRESS NOTE DATE OF SERVICE: 04/09/2021 REASON FOR FOLLOWUP: Intraabdominal abscess. INTERVAL HISTORY: The patient was taken to the OR last night in this patient status post exploratory laparotomy with right colectomy and drainage of the periumbilical abscess. The patient has tolerated the procedure. Culture has been obtained. As of this evening the patient's pain is currently controlled. No chest pain, shortness of breath or cough. No nausea, no vomiting. PHYSICAL EXAMINATION: Blood pressure 125/70 with a pulse of 83, temperature 98.5. He is 98% on room air. General description is a middle-aged male lying in bed in no distress. Respiratory system: Unlabored breathing, clear to auscultation anteriorly. Heart S1, S2. Regular rate and rhythm. Abdomen: Soft. Mildly distended. No guarding. No rigidity. LABS: Hemoglobin 11.4, white count 20.34, creatinine 0.7. DIAGNOSTIC IMPRESSION AND PLAN: Patient with intraabdominal abscess from perforated ascites, status post drainage of the abscess. White count is minimally elevated. Continue Zosyn. We will add Diflucan while watching his closely. Continue supportive care. MMODL / IJN: [id number] /
[2021-04-10] MEDS: KETOROLAC 30 MG/ML 1 ML VIAL IVP SCH ×4 (00:33→17:59)
[2021-04-10] MEDS: PIPERACILLIN-TAZOBACTAM 3.375 GM in SODIUM CHLORIDE 0.9% 100 ML IVPB SCH ×3 (00:34→16:58)
[2021-04-10] MEDS: ACETAMINOPHEN TAB 500 MG TAB PO SCH ×4 (00:34→17:54)
[2021-04-10] MEDS: ONDANSETRON 4 MG/2 ML VIAL IVP PRN ×2 (00:42→14:45)
[2021-04-10] MEDS: HYDROcodone/APAP 5-325MG 1 EACH TAB PO PRN (05:42)
[2021-04-10] MEDS: PANTOPRAZOLE 40 MG/10 ML VIAL IV SCH (10:16)
[2021-04-10] MEDS: HYDROmorphone 1 MG/ML 1 ML SYRINGE IVP PRN ×3 (10:18→20:51)
[2021-04-10] MEDS: FLUCONAZOLE IN NACL,ISO-OSM 200 MG in SALINE 1 100ML.BAG IVPB SCH ×2 (13:17→22:11)
[2021-04-10 13:54] VITALS: BMI 20.6
--- NOTE | 2021-04-10 17:35 | PN ---
PROGRESS NOTE DATE OF SERVICE: 04/10/2021 REASON FOR FOLLOWUP: Intraabdominal abscess from perforated appendicitis. INTERVAL HISTORY: The patient is afebrile. The patient is breathing comfortably. The patient denies having any chest pain or shortness of breath or cough. Abdominal pain is currently controlled. No nausea, no vomiting. PHYSICAL EXAMINATION: Blood pressure 126/63 with a pulse of 83, temperature 98.9. He is 97% on room air. General description is a middle-aged male lying in bed in no distress. Respiratory system: Unlabored breathing. Clear to auscultation anteriorly. Heart S1, S2. Regular rate and rhythm. Abdomen soft, mildly tender. No guarding or rigidity. LABS: White count of 20.34, creatinine 0.7. DIAGNOSTIC IMPRESSION AND PLAN: Patient with intraabdominal abscess of perforated appendicitis, status post right hemicolectomy. Abdominal culture with Gram-negative. Patient is covered with Zosyn. Will wait for the culture to finalize. Current antibiotic to be adjusted further if needed. Continue with supportive care. MMODL / IJN: [id number] /
[2021-04-10] MEDS: SODIUM CHLORIDE 0.9% 1,000 ML IV SCH ×2 (19:06→22:13)
[2021-04-10] MEDS: TEMAZEPAM 15 MG CAP PO PRN (20:51)
[2021-04-10] MEDS: ENOXAPARIN 30 MG/0.3 ML SYRINGE SQ SCH (20:51)
[2021-04-11] MEDS: ACETAMINOPHEN TAB 500 MG TAB PO SCH ×4 (00:30→16:21)
[2021-04-11] MEDS: PIPERACILLIN-TAZOBACTAM 3.375 GM in SODIUM CHLORIDE 0.9% 100 ML IVPB SCH ×3 (00:37→16:14)
--- NOTE | 2021-04-11 07:57 | P.PN ---
Subjective Progress Note Date: 04/10/21 CHIEF COMPLAINT: Ruptured appendicitis HISTORY OF PRESENT ILLNESS: The patient is a 40-year-old male admitted with ruptured appendicitis with, Abscess. Status post right hemicolectomy 04/08/2021. He reports feeling better. "I want to eat." ROS: No reports of nausea and vomiting. No bowel movements. No fevers or chills. No new chest pain. No productive sputum PHYSICAL EXAM: VITAL SIGNS: Reviewed CONSTITUTIONAL: Well developed and in no acute distress. EYES: Conjuctivae without sclera icterus. Extraocular movements grossly intact. HEAD, EARS, NOSE, THROAT: Moist buccal mucosa. Head is atraumatic, normocephalic. Hears conversational speech. No nasal drainage. RESPIRATORY: Non-labored respirations and equal bilateral excursions. CARDIOVASCULAR: Palpable 2+ radial pulses. ABDOMEN: EUNICE serosanguineous. Dressing intact. MUSCULOSKELETAL: No gross deformity of the lower extremities noted. No clubbing. No cyanosis. SKIN: Good skin turgor. Well perfused. NEUROLOGIC: Cranial nerves II through XII grossly intact. No focal or lateralizing signs. PSYCH: Appropriate affect. Alert and oriented to person, place and time. CLINICAL LABS: Reviewed. WBC elevated over 20,000. Hemoglobin of 10.8-11.4 with anemia ASSESSMENT: 1. Complicated ruptured appendicitis status post right hemicolectomy 2. Anemia PLAN: 1. Await cultures to adjust antibiotics. 2. Discontinue EUNICE drain. 3. Will advance diet pending flatus or bowel movement. Objective - Vital Signs Vital signs: Vital Signs Temp 98.9 F 04/10/21 14:42 Pulse 83 04/10/21 14:42 Resp 18 04/10/21 14:42 BP 126/63 04/10/21 14:42 Pulse Ox 97 04/10/21 14:42 Intake & Output 04/10/21 04/10/21 04/11/21 06:59 18:59 06:59 Output Total 110 40 Balance -110 -40 Weight 74.843 kg Output: Drainage 110 40 Right Lower Abdomen 110 40 Other: # Voids 3 - Labs CBC & Chem 7: 04/09/21 04:07 04/09/21 04:07 Labs: Microbiology - Last 24 Hours (Table) 04/08/21 19:20 Gram Stain - Final Abdomen Wound Culture - Final 04/07/21 14:30 Wound Culture - Preliminary Appendix 04/08/21 19:20 Gram Stain - Preliminary Appendix Wound Culture - Preliminary Gram Neg Bacilli
[2021-04-11] MEDS: SODIUM CHLORIDE 0.9% 1,000 ML IV SCH ×2 (08:11→21:06)
[2021-04-11] MEDS: PANTOPRAZOLE 40 MG/10 ML VIAL IV SCH (08:11)
[2021-04-11] MEDS: HYDROmorphone 1 MG/ML 1 ML SYRINGE IVP PRN (08:11)
[2021-04-11 10:47] LABS: Basophils # (A) 0.06 X 10*3/uL (0.00-0.10); Basophils % (A) 0.4 %; Eosinophils # (A) 1.07 X 10*3/uL (0.04-0.35); Eosinophils % (A) 7.3 %; HCT 31.9 % (39.6-50.0); HGB 10.8 g/dL (13.0-17.0); Lymphocytes # (A) 1.26 X 10*3/uL (0.90-5.00); Lymphocytes % (A) 8.6 %; MCH 31.2 pg (27.0-32.0); MCHC 33.9 g/dL (32.0-37.0); MCV 92.2 fL (80.0-97.0); Mean Platelet Volume 9.7 fL (9.5-12.2); Monocytes % (A) 4.1 %; Neutrophils # (A) 11.61 X 10*3/uL (1.80-7.70); Platelet Count 506 X 10*3/uL (140-440); RBC 3.46 X 10*6/uL (4.40-5.60); RDW 13.3 % (11.5-14.5); WBC 14.69 X 10*3/uL (4.50-10.00)
[2021-04-11] MEDS: HYDROcodone/APAP 5-325MG 1 EACH TAB PO PRN ×2 (13:00→19:53)
[2021-04-11 15:42] LABS: ALT 13 U/L (10-49); AST 15 U/L (14-35); African American GFR (CKD) 128.6 (60.0-200.0); Albumin 2.9 g/dL (3.8-4.9); Albumin/Globulin Ratio 1.26 (1.60-3.17); Alkaline Phosphatase 63 U/L (41-126); BUN/Creat Ratio 11.13 Ratio (12.00-20.00); Blood Urea Nitrogen 8.9 mg/dL (9.0-27.0); Calcium 8.7 mg/dL (8.7-10.3); Carbon Dioxide 19.5 mmol/L (20.0-27.5); Chloride 104 mmol/L (96-109); Globulin 2.3 g/dL (1.6-3.3); Glucose 82 mg/dL (70-110); Sodium 139 mmol/L (135-145); Total Bilirubin <0.20 mg/dL (0.30-1.20); Total Protein 5.2 g/dL (6.2-8.2)
[2021-04-11] MEDS: SCOPOLAMINE 1.5MG/72HR PATCH TRANSDERM SCH (16:14)
--- NOTE | 2021-04-11 20:28 | P.PN ---
Subjective Progress Note Date: 04/11/21 CHIEF COMPLAINT: Ruptured appendicitis HISTORY OF PRESENT ILLNESS: The patient is a 40-year-old male admitted with ruptured appendicitis with abscess. He is status post right hemicolectomy 04/08/2021. He is passing flatus and having bowel movements. ROS: No reports of nausea and vomiting. No fevers or chills. No new chest pain. No productive sputum PHYSICAL EXAM: VITAL SIGNS: Reviewed CONSTITUTIONAL: Well developed and in no acute distress. EYES: Conjuctivae without sclera icterus. Extraocular movements grossly intact. HEAD, EARS, NOSE, THROAT: Moist buccal mucosa. Head is atraumatic, normocephalic. Hears conversational speech. No nasal drainage. RESPIRATORY: Non-labored respirations and equal bilateral excursions. CARDIOVASCULAR: Palpable 2+ radial pulses. ABDOMEN: EUNICE serosanguineous. Dressing intact. MUSCULOSKELETAL: No gross deformity of the lower extremities noted. No clubbing. No cyanosis. SKIN: Good skin turgor. Well perfused. NEUROLOGIC: Cranial nerves II through XII grossly intact. No focal or lateralizing signs. PSYCH: Appropriate affect. Alert and oriented to person, place and time. CLINICAL LABS: Reviewed. WBC elevated over 20,000 now 14,700. Hemoglobin of 11.4 to 10.8 with anemia MICRO: E. coli ASSESSMENT: 1. Complicated ruptured appendicitis status post right hemicolectomy 2. Anemia 3. E.coli sepsis PLAN: 1. Continue IV antibiotics 2. Advance diet to low fiber. Objective - Vital Signs Vital signs: Vital Signs Temp 97.9 F 04/11/21 14:00 Pulse 68 04/11/21 14:00 Resp 16 04/11/21 14:00 BP 156/85 04/11/21 14:00 Pulse Ox 95 04/11/21 14:00 Intake & Output 04/11/21 04/11/21 04/12/21 06:59 18:59 06:59 Intake Total 400 1080 Balance 400 1080 Intake: Oral 400 1080 Other: # Voids 2 3 - Labs CBC & Chem 7: 04/11/21 07:58 04/11/21 07:58 Labs: Abnormal Lab Results - Last 24 Hours (Table) 04/11/21 04/11/21 Range/Units 07:58 07:58 WBC 14.69 H (4.50-10.00) X 10*3/uL RBC 3.46 L (4.40-5.60) X 10*6/uL Hgb 10.8 L (13.0-17.0) g/dL Hct 31.9 L (39.6-50.0) % Plt Count 506 H (140-440) X 10*3/uL Immature Gran # 0.09 H (0.00-0.04) X 10*3/uL Neutrophils # 11.61 H (1.80-7.70) X 10*3/uL Eosinophils # 1.07 H (0.04-0.35) X 10*3/uL Carbon Dioxide 19.5 L (20.0-27.5) mmol/L BUN 8.9 L (9.0-27.0) mg/dL BUN/Creatinine Ratio 11.13 L (12.00-20.00) Ratio Total Bilirubin <0.20 L (0.30-1.20) mg/dL Total Protein 5.2 L (6.2-8.2) g/dL Albumin 2.9 L (3.8-4.9) g/dL Albumin/Globulin Ratio 1.26 L (1.60-3.17) g/dL Microbiology - Last 24 Hours (Table) 04/07/21 14:30 Gram Stain - Final Appendix Wound Culture - Final Escherichia coli 04/07/21 14:30 Anaerobic Culture - Final Aspirate Anaerobic Gm Negative Bacilli Anaerobic Gm Negative Bacilli#2 Anaerobic Gram Positive Cocci 04/08/21 19:20 Anaerobic Culture - Preliminary Abdominal Fluid 04/08/21 19:20 Gram Stain - Final Appendix Wound Culture - Final Escherichia coli 04/08/21 19:20 Gram Stain - Final Abdomen Wound Culture - Final
[2021-04-11] MEDS: ENOXAPARIN 30 MG/0.3 ML SYRINGE SQ SCH (21:06)
[2021-04-11] MEDS: FLUCONAZOLE IN NACL,ISO-OSM 200 MG in SALINE 1 100ML.BAG IVPB SCH (21:06)
[2021-04-11] MEDS: ONDANSETRON 4 MG/2 ML VIAL IVP PRN (22:10)
[2021-04-11] MEDS: TEMAZEPAM 15 MG CAP PO PRN (22:15)
--- NOTE | 2021-04-11 23:12 | PN ---
PROGRESS NOTE DATE OF SERVICE: 04/11/2021 REASON FOR FOLLOWUP: Intraabdominal abscess from perforated appendicitis. INTERVAL HISTORY: The patient is afebrile. The patient is breathing comfortably. The patient's abdominal pain is currently controlled. Denies having any chest pain, shortness of breath or cough. No vomiting. Wants to go home. PHYSICAL EXAMINATION: Blood pressure is 151/81 with a pulse of 50, temperature 98.5. He is 97% on room air. General description is a middle-aged male lying in bed in no distress. Respiratory system: Unlabored breathing. Clear to auscultation anteriorly. Heart S1, S2. Regular rate and rhythm. Abdomen soft, mildly tender. No guarding or rigidity. LABS: Hemoglobin is 10.8, white count 14.65, creatinine 0.8. Abdominal culture with anaerobes and E coli. DIAGNOSTIC IMPRESSION AND PLAN: Patient with intraabdominal abscess from perforated appendicitis, status post right colectomy. The patient is covered with Zosyn, sensitive pathogen, finishing therapy with oral Cipro and Flagyl for 10 days and close outpatient followup. MMODL / IJN: [id number] /
[2021-04-12] MEDS: ACETAMINOPHEN TAB 500 MG TAB PO SCH ×4 (00:35→17:42)
[2021-04-12] MEDS: PIPERACILLIN-TAZOBACTAM 3.375 GM in SODIUM CHLORIDE 0.9% 100 ML IVPB SCH (00:36)
[2021-04-12] MEDS: HYDROcodone/APAP 5-325MG 1 EACH TAB PO PRN ×3 (05:51→17:40)
[2021-04-12] MEDS: PANTOPRAZOLE 40 MG/10 ML VIAL IV SCH (08:05)
[2021-04-12] MEDS: ONDANSETRON 4 MG/2 ML VIAL IVP PRN (08:05)
[2021-04-12 09:27] LABS: Basophils # (A) 0.07 X 10*3/uL (0.00-0.10); Basophils % (A) 0.6 %; Eosinophils # (A) 0.83 X 10*3/uL (0.04-0.35); Eosinophils % (A) 7.2 %; HCT 34.5 % (39.6-50.0); HGB 11.7 g/dL (13.0-17.0); Lymphocytes # (A) 2.08 X 10*3/uL (0.90-5.00); MCH 31.6 pg (27.0-32.0); MCHC 33.9 g/dL (32.0-37.0); MCV 93.2 fL (80.0-97.0); Mean Platelet Volume 10.2 fL (9.5-12.2); Monocytes # (A) 0.78 X 10*3/uL (0.20-1.00); Monocytes % (A) 6.7 %; Neutrophils # (A) 7.75 X 10*3/uL (1.80-7.70); Neutrophils % (A) 66.9 %; Platelet Count 533 X 10*3/uL (140-440); RDW 13.3 % (11.5-14.5); WBC 11.58 X 10*3/uL (4.50-10.00)
[2021-04-12 09:57] LABS: African American GFR (CKD) 135.9 (60.0-200.0); Albumin/Globulin Ratio 1.3 (1.60-3.17); Anion Gap 14.4 mmol/L (10.00-18.00); BUN/Creat Ratio 11.57 Ratio (12.00-20.00); Blood Urea Nitrogen 8.1 mg/dL (9.0-27.0); Calcium 8.8 mg/dL (8.7-10.3); Carbon Dioxide 21.6 mmol/L (20.0-27.5); Globulin 2.3 g/dL (1.6-3.3); Non-African American GFR(CKD) 117.2 (60.0-200.0); Potassium 3.9 mmol/L (3.5-5.5); Total Bilirubin 0.2 mg/dL (0.30-1.20); Total Protein 5.3 g/dL (6.2-8.2)
--- NOTE | 2021-04-12 13:07 | P.PN ---
Subjective Progress Note Date: 04/12/21 CHIEF COMPLAINT: Ruptured appendicitis HISTORY OF PRESENT ILLNESS: The patient is a 40-year-old male admitted with ruptured appendicitis with abscess. He is status post right hemicolectomy 04/08/2021. He is passing flatus and having bowel movements. He is tolerating low fiber diet. Pain is well controlled. ROS: No reports of nausea and vomiting. No fevers or chills. No new chest pain. No productive sputum PHYSICAL EXAM: VITAL SIGNS: Reviewed CONSTITUTIONAL: Well developed and in no acute distress. EYES: Conjuctivae without sclera icterus. Extraocular movements grossly intact. HEAD, EARS, NOSE, THROAT: Moist buccal mucosa. Head is atraumatic, normocephalic. Hears conversational speech. No nasal drainage. RESPIRATORY: Non-labored respirations and equal bilateral excursions. CARDIOVASCULAR: Palpable 2+ radial pulses. ABDOMEN: EUNICE serosanguineous. Dressing intact. MUSCULOSKELETAL: No gross deformity of the lower extremities noted. No clubbing. No cyanosis. SKIN: Good skin turgor. Well perfused. NEUROLOGIC: Cranial nerves II through XII grossly intact. No focal or lat eralizing signs. PSYCH: Appropriate affect. Alert and oriented to person, place and time. CLINICAL LABS: Reviewed. WBC elevated over 20,000 now 14,700 today 11,580 MICRO: E. coli ASSESSMENT: 1. Complicated ruptured appendicitis status post right hemicolectomy 2. Anemia 3. E.coli sepsis PLAN: 1. Disposition pending antibiotic management. 2. Continue IV antibiotics Objective - Vital Signs Vital signs: Vital Signs Temp 98.6 F 04/12/21 08:00 Pulse 67 04/12/21 08:00 Resp 16 04/12/21 08:00 BP 159/83 04/12/21 08:00 Pulse Ox 98 04/12/21 08:00 Intake & Output 04/11/21 04/12/21 04/12/21 18:59 06:59 18:59 Intake Total 1080 1200 Output Total 30 Balance 1080 1170 Weight 74.843 kg Intake: Intake, IV Titration 1200 Amount Fluconazole in NaCl,Iso- 100 Osm 200 mg In Saline 1 100ml.bag @ 100 mls/hr IVPB [facility] Rx#:[id number] Piperacillin-Tazobactam 3 100 .375 gm In Sodium Chloride 0.9% 100 ml @ 25 mls/hr IVPB Q8HR [facility] Rx# :[id number] Sodium Chloride 0.9% 1, 1000 000 ml @ 75 mls/hr IV . [id number] [facility] Rx#:[id number] Oral 1080 Output: Drainage 30 Abdomen 30 Other: # Voids 3 3 # Bowel Movements 1 - Labs CBC & Chem 7: 04/12/21 05:26 04/12/21 05:26 Labs: Abnormal Lab Results - Last 24 Hours (Table) 04/11/21 04/12/21 04/12/21 Range/Units 07:58 05:26 05:26 WBC 11.58 H (4.50-10.00) X 10*3/uL RBC 3.70 L (4.40-5.60) X 10*6/uL Hgb 11.7 L (13.0-17.0) g/dL Hct 34.5 L (39.6-50.0) % Plt Count 533 H (140-440) X 10*3/uL Immature Gran # 0.07 H (0.00-0.04) X 10*3/uL Neutrophils # 7.75 H (1.80-7.70) X 10*3/uL Eosinophils # 0.83 H (0.04-0.35) X 10*3/uL Carbon Dioxide 19.5 L (20.0-27.5) mmol/L BUN 8.9 L 8.1 L (9.0-27.0) mg/dL BUN/Creatinine Ratio 11.13 L 11.57 L (12.00-20.00) Ratio Total Bilirubin <0.20 L 0.20 L (0.30-1.20) mg/dL AST 13 L (14-35) U/L Total Protein 5.2 L 5.3 L (6.2-8.2) g/dL Albumin 2.9 L 3.0 L (3.8-4.9) g/dL Albumin/Globulin Ratio 1.26 L 1.30 L (1.60-3.17) g/dL Microbiology - Last 24 Hours (Table) 04/08/21 19:20 Anaerobic Culture - Final Appendix Anaerobic Gram Positive Cocci Anaerobic Gm Negative Bacilli Anaerobic Gm Negative Bacilli#2 04/07/21 14:30 Gram Stain - Final Appendix Wound Culture - Final Escherichia coli
[2021-04-12] MEDS: SODIUM CHLORIDE 0.9% 1,000 ML IV SCH (16:06)
[2021-04-12] MEDS: FLUCONAZOLE IN NACL,ISO-OSM 200 MG in SALINE 1 100ML.BAG IVPB SCH (20:56)
[2021-04-12] MEDS: ENOXAPARIN 30 MG/0.3 ML SYRINGE SQ SCH (20:56)
[2021-04-12] MEDS: HYDROmorphone 1 MG/ML 1 ML SYRINGE IVP PRN (21:00)
--- NOTE | 2021-04-12 23:31 | P.PN ---
Progress Note - Text Progress Note Date: 04/12/21 REASON FOR FOLLOWUP: Intraabdominal abscess from perforated appendicitis. INTERVAL HISTORY: The patient remains to be afebrile. The patient is breathing comfortably. The patient's abdominal pain is currently controlled. Denies having any chest pain, shortness of breath or cough. No vomiting. Patient is very upset and Wants to go home. PHYSICAL EXAMINATION: Blood pressure is 150/80 with a pulse of 50, temperature 98.5. He is 97% on room air. General description is a middle-aged male lying in bed in no distress. Respiratory system: Unlabored breathing. Clear to auscultation anteriorly. Heart S1, S2. Regular rate and rhythm. Abdomen soft, mildly tender. No guarding or rigidity. LABS: White count is down to 11,000 Abdominal culture with anaerobes and E coli. DIAGNOSTIC IMPRESSION AND PLAN: Patient with intraabdominal abscess from perforated appendicitis, status post right colectomy. The patient has clinically responded to Zosyn, sensitive pathogen, patient will finish therapy with oral Cipro and Flagyl for 10 days and close outpatient followup.
[2021-04-13] MEDS: ACETAMINOPHEN TAB 500 MG TAB PO SCH ×3 (00:28→12:16)
[2021-04-13] MEDS: TEMAZEPAM 15 MG CAP PO PRN (00:28)
[2021-04-13] MEDS: SODIUM CHLORIDE 0.9% 1,000 ML IV SCH ×2 (03:57→07:37)
[2021-04-13] MEDS: HYDROmorphone 1 MG/ML 1 ML SYRINGE IVP PRN (05:50)
[2021-04-13] MEDS: PANTOPRAZOLE 40 MG/10 ML VIAL IV SCH (07:33)
[2021-04-13] MEDS: HYDROcodone/APAP 5-325MG 1 EACH TAB PO PRN (07:36)
[2021-04-13 07:45] VITALS: BP 160/87; PULSE 64; RESP 16; TEMP 97.8
[2021-04-13 09:15] LABS: Basophils # (A) 0.08 X 10*3/uL (0.00-0.10); Basophils % (A) 0.5 %; Eosinophils # (A) 1.24 X 10*3/uL (0.04-0.35); Eosinophils % (A) 8.2 %; HCT 32.7 % (39.6-50.0); HGB 10.9 g/dL (13.0-17.0); Lymphocytes % (A) 11.9 %; MCH 31.2 pg (27.0-32.0); MCHC 33.3 g/dL (32.0-37.0); MCV 93.7 fL (80.0-97.0); Mean Platelet Volume 10.2 fL (9.5-12.2); Monocytes # (A) 1.06 X 10*3/uL (0.20-1.00); Neutrophils # (A) 10.78 X 10*3/uL (1.80-7.70); Neutrophils % (A) 71.7 %; Platelet Count 565 X 10*3/uL (140-440); RBC 3.49 X 10*6/uL (4.40-5.60); RDW 13.2 % (11.5-14.5); WBC 15.07 X 10*3/uL (4.50-10.00)
[2021-04-13 09:36] LABS: African American GFR (CKD) 129.3 (60.0-200.0); BUN/Creat Ratio 7.51 Ratio (12.00-20.00); Blood Urea Nitrogen 5.9 mg/dL (9.0-27.0); Calcium 8.9 mg/dL (8.7-10.3); Carbon Dioxide 24.8 mmol/L (20.0-27.5); Non-African American GFR(CKD) 111.5 (60.0-200.0); Potassium 3.8 mmol/L (3.5-5.5)
--- NOTE | 2021-04-13 14:21 | P.DS ---
Providers Date of admission: 04/04/21 15:02 Expected date of discharge: 04/13/21 Attending physician: Farheen Jean Consults: 04/06/21 09:15 Consult Physician Urgent Consulting Provider: Stoney Reynolds Consult Reason/Comments: Acute appendicitis with rupture Do you want consulting provider notified?: Yes Primary care physician: Stated None - Discharge Diagnosis(es) (1) Sepsis Status: Acute (2) Appendiceal abscess Status: Acute (3) Ruptured appendix Status: Acute Hospital Course: CHIEF COMPLAINT: Ruptured appendicitis HISTORY OF PRESENT ILLNESS: The patient is a 40-year-old male admitted with ruptured appendicitis with abscess. He is status post right hemicolectomy 04/08/2021. He is tolerating diet. Denies fevers or chills. Patient has been seen by infectious disease with plan of oral antibiotics upon discharge. Patie nt is afebrile and eager to home. ROS: No reports of nausea and vomiting. No fevers or chills. No new chest pain. No productive sputum PHYSICAL EXAM: VITAL SIGNS: Reviewed CONSTITUTIONAL: Well developed and in no acute distress. EYES: Conjuctivae without sclera icterus. Extraocular movements grossly intact. HEAD, EARS, NOSE, THROAT: Moist buccal mucosa. Head is atraumatic, normocephalic . Hears conversational speech. No nasal drainage. RESPIRATORY: Non-labored respirations and equal bilateral excursions. CARDIOVASCULAR: Palpable 2+ radial pulses. ABDOMEN: EUNICE serosanguineous. Dressing intact. MUSCULOSKELETAL: No gross deformity of the lower extremities noted. No clubbing. No cyanosis. SKIN: Good skin turgor. Well perfused. NEUROLOGIC: Cranial nerves II through XII grossly intact. No focal or lateralizing signs. PSYCH: Appropriate affect. Alert and oriented to person, place and time. CLINICAL LABS: Reviewed. WBC elevated over 10,000. ASSESSMENT: 1. Complicated ruptured appendicitis status post right hemicolectomy 2. Anemia PLAN: 1. Antibiotics of ciprofloxacin and Flagyl sent to his local pharmacy. 2. Discharge instructions reviewed with follow-up with Dr. Lane as outpatient. Patient Condition at Discharge: Stable Plan - Discharge Summary Discharge Rx Participant: No New Discharge Prescriptions: New Simethicone [Gas-X] 125 mg PO AC-TID PRN #20 capsule PRN Reason: Pain Ibuprofen [Motrin] 600 mg PO Q8HR PRN #30 tab PRN Reason: Pain Ciprofloxacin HCl [Cipro] 500 mg PO BID 10 Days #20 tab metroNIDAZOLE [Flagyl] 500 mg PO TID #30 tab Acetaminophen Tab [Tylenol Tab] 1,000 mg PO Q6HR PRN #30 tablet PRN Reason: Pain Discharge Medication List Ciprofloxacin HCl [Cipro] 500 mg PO BID 10 Days #20 tab 04/12/21 [Rx] metroNIDAZOLE [Flagyl] 500 mg PO TID #30 tab 04/12/21 [Rx] Acetaminophen Tab [Tylenol Tab] 1,000 mg PO Q6HR PRN #30 tablet 04/13/21 [Rx] Ibuprofen [Motrin] 600 mg PO Q8HR PRN #30 tab 04/13/21 [Rx] Simethicone [Gas-X] 125 mg PO AC-TID PRN #20 capsule 04/13/21 [Rx] Follow up Appointment(s)/Referral(s): Ed Lane MD [Medical Doctor] - 04/20/21 9:45 am Patient Instructions/Handouts: [place] Drain Care (DC), Laparoscopic Ap pendectomy (GEN) Activity/Diet/Wound Care/Special Instructions: No lifting over 10 pounds for 4 weeks until May 09. May shower. No bathtub soaks. Record outputs from EUNICE drain. Please go to [email or web address] to find a local primary care physician. Discharge Disposition: HOME SELF-CARE
--- NOTE | 2021-04-17 08:55 | CT ---
EXAMINATION TYPE: CT guided abscess drainage DATE OF EXAM: 04/07/2021 HISTORY: Periappendiceal abscess COMPARISON: CT 04/07/2021 PROCEDURE: Maximal barrier technique was utilized. The skin over suitable path to the abscess was localized wit h CT and the overlying skin prepped and draped. Lidocaine was used for local anesthesia. A skin swapna k made with a scalpel. Access was gained using CT guidance with a 21-gauge needle, minimal purulent material returned in the hub of the needle. A 0.018 inch wire was advanced and the access site was u psized, the wire was upsized and subsequently an attempt was made with an 8-[place] drain and could no t be deployed. Catheter was removed. Postprocedure CT shows no interval change. No immediate complica tion. Purulent material sent for laboratory analysis. The patient remained in stable condition. IMPRESSION: STATUS POST attempted CT GUIDED ABSCESS DRAINAGE, MICROBIOLOGY ANALYSIS IS PENDING. THIS PROCEDURE W PERFORMED BY THE UNDERSIGNED.
== END 2021-04-13 15:32 | disposition home or self-care (01) | DRG 329 ==
LOC: EC 13:54 → 4SSUR 15:02
PROVIDERS: ADMIT Surgery Plastic and Reconstructive Surgery; ATTEND Surgery Plastic and Reconstructive Surgery
PROC: 0W9G3ZX Drainage of Peritoneal Cavity, Percutaneous Approach, Diagnostic (ICD-10-PCS; 2021-04-07)
PROC: 0DBF0ZZ Excision of Right Large Intestine, Open Approach (ICD-10-PCS; principal; 2021-04-08 18:00)
DX: K35.33 Acute appendicitis with perforation, localized peritonitis, and gangrene, with abscess (principal); A41.51 Sepsis due to Escherichia coli [E. coli]; D64.9 Anemia, unspecified; M43.06 Spondylolysis, lumbar region; Z87.891 Personal history of nicotine dependence
CPT/HCPCS: 36415; 74022; 74177; 75989; 80048; 80053; 83605; 85025; 87070; 87075; 87077; 87186; 87205; 87635; 88307; 93005; 96361; 96365; 96372; 96375; 96376; 99285